=== PATIENT | male | born 1970 | race Caucasian/White ===

== ENCOUNTER → 2020-04-15 | Outpatient (CLI) | payer OTHER ==
[~2020-04-15] VITALS: Ht 172.7 cm; Wt 105.2 kg
== END ==
LOC: OPSV 07:43
DX: K50.818 Crohn's disease of both small and large intestine with other complication (principal); K50.90 Crohn's disease, unspecified, without complications
CPT/HCPCS: 96365; J3380; J7050

== ENCOUNTER → 2020-06-03 | Outpatient (CLI) | payer OTHER ==
[~2020-06-03] VITALS: Ht 172.7 cm; Wt 105.2 kg
== END ==
LOC: OPSV 08:00
DX: K50.818 Crohn's disease of both small and large intestine with other complication (principal)
CPT/HCPCS: 96365; J3380; J7050

== ENCOUNTER → 2020-07-22 | Outpatient (CLI) | payer OTHER ==
[~2020-07-22] VITALS: Ht 172.7 cm; Wt 105.2 kg
== END ==
LOC: OPSV 07:54
DX: K50.818 Crohn's disease of both small and large intestine with other complication (principal)
CPT/HCPCS: 96365; J3380; J7050

== ENCOUNTER → 2020-09-09 | Outpatient (CLI) | payer OTHER ==
[~2020-09-09] VITALS: Ht 172.7 cm; Wt 105.2 kg
== END ==
LOC: OPSV 07:54
DX: K50.819 Crohn's disease of both small and large intestine with unspecified complications (principal)
CPT/HCPCS: 96365; J3380; J7050

== ENCOUNTER → 2020-11-04 | Outpatient (CLI) | payer OTHER ==
[~2020-11-04] VITALS: Ht 172.7 cm; Wt 105.2 kg
== END ==
LOC: OPSV 07:44
DX: K50.819 Crohn's disease of both small and large intestine with unspecified complications (principal)
CPT/HCPCS: 96365; J3380; J7050

== ENCOUNTER → 2020-12-23 | Outpatient (CLI) | payer OTHER ==
[~2020-12-23] VITALS: Ht 172.7 cm; Wt 105.2 kg
== END ==
LOC: OPSV 07:44
DX: K50.819 Crohn's disease of both small and large intestine with unspecified complications (principal)
CPT/HCPCS: 96365; J3380; J7050

== ENCOUNTER → 2021-02-10 | Outpatient (CLI) | payer OTHER ==
[~2021-02-10] VITALS: Ht 172.7 cm; Wt 105.2 kg
== END ==
LOC: OPSV 07:31
DX: K50.819 Crohn's disease of both small and large intestine with unspecified complications (principal)
CPT/HCPCS: 96365; J3380; J7050

== ENCOUNTER → 2021-04-04 | Outpatient (CLI) | payer OTHER ==
[~2021-04-04] VITALS: Ht 172.7 cm; Wt 105.2 kg
== END ==
LOC: OPSV 03-31 08:00
DX: K50.819 Crohn's disease of both small and large intestine with unspecified complications (principal)
CPT/HCPCS: 96365; J3380; J7050

== ENCOUNTER → 2021-05-26 | Outpatient (CLI) | payer OTHER ==
[~2021-05-26] VITALS: Ht 172.7 cm; Wt 105.2 kg
[2021-05-26 08:18] LABS: HEMOGLOBIN 14.7 gm/dl (14.0-17.5); RED BLOOD COUNT 4.87 M/UL (4.20-5.50); WHITE BLOOD COUNT 9.1 K/UL (4.5-11.0)
[2021-05-27 08:14] LABS: TESTOSTERONE, SERUM 151 ng/dL (264-916)
== END ==
LOC: OPSV 07:50
PROVIDERS: Internal Medicine; Internal Medicine Gastroenterology
DX: K50.819 Crohn's disease of both small and large intestine with unspecified complications (principal); R53.83 Other fatigue
CPT/HCPCS: 80053; 84403; 85025; 96365; J3380; J7050

== ENCOUNTER → 2021-07-14 | Outpatient (CLI) | payer OTHER ==
[~2021-07-14] VITALS: Ht 172.7 cm; Wt 105.2 kg
== END ==
LOC: OPSV 07:42
DX: K50.819 Crohn's disease of both small and large intestine with unspecified complications (principal)
CPT/HCPCS: 96365; J3380; J7050

== ENCOUNTER → 2021-10-20 | Outpatient (CLI) | payer OTHER | LOC: OPSV 07:34 | DX: K50.819 Crohn's disease of both small and large intestine with unspecified complications (principal) | CPT/HCPCS: 96365; J3380; J7050 ==

== ENCOUNTER → 2021-12-08 | Outpatient (CLI) | payer OTHER ==
[~2021-12-08] VITALS: Ht 172.7 cm; Wt 105.2 kg
== END ==
LOC: OPSV 07:39
DX: K50.819 Crohn's disease of both small and large intestine with unspecified complications (principal)
CPT/HCPCS: 96365; J3380; J7050